=== PATIENT | female | born 1985 | race Caucasian/White ===

== ENCOUNTER 2018-08-23 02:00 | Emergency (ER) | payer BC ==
[~2018-08-23] VITALS: Ht 157.5 cm; Wt 74.8 kg
[2018-08-23 01:59] VITALS: BP_SYST 104; BP_SYST 122; BP_DIAS 67; BP_DIAS 76
--- NOTE | 2018-08-23 02:00 | NUR ---
ED Nurse Note: PT CAME TO ED FROM HOME VIA RA 68 PT WAS HELPING SISTER OUT OF BED AND FELT DIZZY AND SAT ON HER KNEES AND WAS ASSISTED TO HER BED. PER PT SHE DID NOT HIT HER HEAD OR HAVE ANY TRAUMA TO BODY DURING SYNCOPAL EPISODE
--- NOTE | 2018-08-23 02:08 | Emergency Room Report ---
History of Present Illness General Chief Complaint: Syncope Source: Patient Present Illness HPI Patient is a 33-year-old female brought in by EMS after syncopal episode. Patient reportedly had not eaten well throughout the day. She reportedly had been feeling normal but had stood up rapidly and subsequently became lightheaded. Patient had previous history of chronic back pain due to lumbar disc disease. Patient denies any recent headache or chest discomfort. She reports feeling lightheaded prior to passing out. Patient stated that she had felt some nausea. Patient reports having no prior contraceptive use or any leg pain or swelling. Allergies: Coded Allergies: CEFACLOR (Verified Allergy, Unknown, 08/23/18) PENICILLINS (Verified Allergy, Unknown, 08/23/18) SULFA (SULFONAMIDE ANTIBIOTICS) (Verified Allergy, Unknown, 08/23/18) Patient History Past Medical History: see triage record Last Menstrual Period: Aug 03 2018 Now: No Reviewed Nursing Documentation: PMH: Agreed; PSxH: Agreed Nursing Documentation-PMH Hx Neurological Problems: Yes - hernia disk Review of Systems All Other Systems: negative except mentioned in HPI Physical Exam Vital Signs Date Time Temp Pulse Resp B/P (MAP) Pulse Ox O2 Delivery O2 Flow Rate FiO2 08/23/18 01:54 98.1 78 20 104/76 97 Room Air Sp02 EP Interpretation: reviewed, normal General Appearance: normal inspection, well appearing, no apparent distress, alert, GCS 15, non-toxic, obese Head: atraumatic ENT: normal ENT inspection, hearing grossly normal, normal voice Neck: normal inspection, full range of motion, supple, no bony tend Respiratory: normal inspection, lungs clear, normal breath sounds, no respiratory distress, no retraction, no wheezing Cardiovascular #1: regular rate, rhythm, no edema Gastrointestinal: normal inspection, normal bowel sounds, non tender, soft, no guarding, no hernia Genitourinary: no CVA tenderness Musculoskeletal: normal inspection, back normal, normal range of motion Neurologic: normal inspection, alert, oriented x3, responsive, product development ecologist III-XII nml as tested, speech normal Psychiatric: normal inspection, judgement/insight normal, mood/affect normal Skin: normal inspection, normal color, no rash Medical Decision Making Diagnostic Impression: Primary Impression: Syncope Additional Impression: Orthostatic syncope ER Course Patient presented for syncope. Differential diagnosis included but not limited to arrhythmia, dehydration, acute coronary syndrome, severe anemia, pulmonary embolus. Because of complexity of patient's case laboratory testing and imaging studies were ordered. Patient was noted to be feeling better after initial IV fluids by EMS. Patient reports taking Mobic as well as another medication for low back pain. She denies taking at night.Patient started on IV fluids and was noted to have improvement in her symptomatology. Laboratory testing was notable for minimally elevated white blood count as well as a negative d-dimer normal troponin.Bedside ultrasound showed no evidence of pericardial effusion or abdominal free fluid.EKG showed no dynamic changes. Patient denies any chest pain.Patient was given IV fluids with improvement of her symptoms. Patient was noted to be ambulatory without assistance at the time of discharge. Patient was advised to follow-up with cardiology. She was advised not to drive until cleared by her [facility] administrator. This appears to be an orthostatic syncopal episode. Labs Test 08/23/18 02:04 08/23/18 03:30 White Blood Count 11.2 K/UL (4.8-10.8) Red Blood Count 4.81 M/UL (4.20-5.40) Hemoglobin 13.6 G/DL (12.0-16.0) Hematocrit 40.5 % (37.0-47.0) Mean Corpuscular Volume 84 FL (80-99) Mean Corpuscular Hemoglobin 28.3 PG (27.0-31.0) Mean Corpuscular Hemoglobin Concent 33.7 G/DL (32.0-36.0) Red Cell Distribution Width 11.0 % (11.6-14.8) Platelet Count 272 K/UL (150-450) Mean Platelet Volume 7.4 FL (6.5-10.1) Neutrophils (%) (Auto) 54.5 % (45.0-75.0) Lymphocytes (%) (Auto) 35.1 % (20.0-45.0) Monocytes (%) (Auto) 7.9 % (1.0-10.0) Eosinophils (%) (Auto) 1.4 % (0.0-3.0) Basophils (%) (Auto) 1.1 % (0.0-2.0) D-Dimer 0.20 mg/L FEU (0.00-0.49) Sodium Level 140 MMOL/L (136-145) Potassium Level 3.5 MMOL/L (3.5-5.1) Chloride Level 103 MMOL/L (98-107) Carbon Dioxide Level 26 MMOL/L (21-32) Anion Gap 11 mmol/L (5-15) Blood Urea Nitrogen 14 mg/dL (7-18) Creatinine 0.9 MG/DL (0.55-1.30) Estimat Glomerular Filtration Rate > 60 mL/min (>60) Glucose Level 105 MG/DL (74-106) Calcium Level 9.3 MG/DL (8.5-10.1) Total Bilirubin 0.4 MG/DL (0.2-1.0) Aspartate Amino Transf (AST/SGOT) 26 U/L (15-37) Alanine Aminotransferase (ALT/SGPT) 41 U/L (12-78) Alkaline Phosphatase 64 U/L (46-116) Troponin I 0.001 ng/mL (0.000-0.056) Total Protein 7.1 G/DL (6.4-8.2) Albumin 3.8 G/DL (3.4-5.0) Globulin 3.3 g/dL Albumin/Globulin Ratio 1.2 (1.0-2.7) Urine Color Pale yellow Urine Appearance Clear Urine pH 7 (4.5-8.0) Urine Specific [place] 1.005 (1.005-1.035) Urine Protein Negative (NEGATIVE) Urine Glucose (UA) Negative (NEGATIVE) Urine Ketones Negative (NEGATIVE) Urine Blood Negative (NEGATIVE) Urine Nitrite Negative (NEGATIVE) Urine Bilirubin Negative (NEGATIVE) Urine Urobilinogen Normal MG/DL (0.0-1.0) Urine Leukocyte Esterase Negative (NEGATIVE) EKG Diagnostic Results Rate: normal Rhythm: NSR ST Segments: no acute changes Last Vital Signs Date Time Temp Pulse Resp B/P (MAP) Pulse Ox O2 Delivery O2 Flow Rate FiO2 08/23/18 01:59 98.1 75 17 122/67 99 Room Air Status: improved Disposition: HOME, SELF-CARE Condition: Stable Ulises Weeks MD Aug 23, 2018 02:08
--- NOTE | 2018-08-23 02:10 | NUR ---
ED Nurse Note: BLOOD SPECIMEN SENT TO LAB
[2018-08-23 02:18] LABS: BASOPHILS % (AUTO) 1.1 % (0.0-2.0); EOSINOPHILS % (AUTO) 1.4 % (0.0-3.0); HEMATOCRIT 40.5 % (37.0-47.0); HEMOGLOBIN 13.6 G/DL (12.0-16.0); LYMPHOCYTES % (AUTO) 35.1 % (20.0-45.0); MEAN CORPUSCULAR VOLUME 84 FL (80-99); MONOCYTES % (AUTO) 7.9 % (1.0-10.0); NEUTROPHILS % (AUTO) 54.5 % (45.0-75.0); PLATELET COUNT 272 K/UL (150-450); RED BLOOD COUNT 4.81 M/UL (4.20-5.40); WHITE BLOOD COUNT 11.2 K/UL (4.8-10.8)
[2018-08-23 02:29] LABS: ANION GAP 11 mmol/L (5-15); BLOOD UREA NITROGEN 14 mg/dL (7-18); CALCIUM 9.3 MG/DL (8.5-10.1); CARBON DIOXIDE 26 MMOL/L (21-32); CHLORIDE 103 MMOL/L (98-107); CREATININE 0.9 MG/DL (0.55-1.30); POTASSIUM 3.5 MMOL/L (3.5-5.1); SODIUM 140 MMOL/L (136-145)
[2018-08-23 02:35] LABS: ALANINE AMINOTRANSFERASE 41 U/L (12-78); ALBUMIN 3.8 G/DL (3.4-5.0); ALBUMIN/GLOBULIN RATIO 1.2 (1.0-2.7); ALKALINE PHOSPHATASE 64 U/L (46-116); ASPARTATE AMINO TRANSFERASE 26 U/L (15-37); BILIRUBIN,TOTAL 0.4 MG/DL (0.2-1.0)
[2018-08-23 03:20] VITALS: BP_SYST 118; BP_SYST 122; BP_SYST 88; BP_DIAS 73; BP_DIAS 75; BP_DIAS 76
--- NOTE | 2018-08-23 03:32 | NUR ---
ED Nurse Note: URINE SPECIMEN SENT TO LAB
[2018-08-23 03:37] LABS: APPEARANCE,URINE CLEAR; BILIRUBIN, URINE NEGATIVE (NEGATIVE); COLOR,URINE PALE YELLOW; GLUCOSE, URINE (UA) NEGATIVE (NEGATIVE); KETONES,URINE NEGATIVE (NEGATIVE); LEUKOCYTE ESTERASE ,URINE NEGATIVE (NEGATIVE); NITRITE,URINE NEGATIVE (NEGATIVE); PH,URINE 7 (4.5-8.0); PROTEIN,URINE NEGATIVE (NEGATIVE); UROBILINOGEN,URINE NORMAL MG/DL (0.0-1.0)
[2018-08-23] MEDS ORDERED: PREVACID15 M2 ORAL (03:38)
[2018-08-23] MEDS ORDERED: MOBIC7.5 MG ORAL (03:38)
--- NOTE | 2018-08-23 03:41 | NUR ---
ED Nurse Note: MOTHER MARCE IS AT BEDSIDE, PT IS TRYING TO SLEEP. PT VSS AT THE MOMENT, PT IS ON ROOM AIR. NO ACUTE DISTRESS. SOME LOW BACK PAIN PRESENT DUE TO PREVIOUS HERNIAL DISK REMOVAL 08/13
[2018-08-23 04:03] VITALS: BP 124/78
[2018-08-23 04:13] VITALS: BP 124/78
--- NOTE | 2018-08-23 04:13 | NUR ---
ER DISCHARGE NOTE: Patient is cleared to be discharged per ERMD, pt is aox4, on room air, with stable vital signs. pt was given dc instructions, pt was able to verbalize understanding, pt id band and iv site removed without complications. pt is able to ambulate with steady gait. pt took all belongings. Mother at bedside.
--- NOTE | 2018-08-25 14:25 | Cardiology Report ---
APPROVED REPORT EKG Measurement Heart [id number] Normal sinus rhythm Normal ECG
== END 2018-08-23 04:13 | disposition home or self-care (01) ==
LOC: EDBD 02:00 → EMR 02:14
DX: I95.1 Orthostatic hypotension (principal); M51.36 Other intervertebral disc degeneration, lumbar region; Z88.0 Allergy status to penicillin; Z88.8 Allergy status to other drugs, medicaments and biological substances; Z88.2 Allergy status to sulfonamides
CPT/HCPCS: 36415; 80053; 81001; 81025; 84484; 85025; 85379; 93005; 96360; 99284